=== PATIENT | male | born 1990 | race Caucasian/White ===

== ENCOUNTER 2018-08-16 11:54 | Emergency (ER) | payer BC ==
--- NOTE | 2018-08-16 13:46 | EDM.PDOC ---
<Quang Blas - Last Filed: 08/16/18 13:39> ED HPI GENERAL MEDICAL PROBLEM - General Chief Complaint: ENT Problem Stated Complaint: SORE THROAT Time Seen by Provider: 08/16/18 12:25 Source of Information: Reports: Patient History Limitations: Reports: No Limitations - History of Present Illness INITIAL COMMENTS - FREE TEXT/NARRATIVE: Rodrigo Pickard is a 28 year old male who presents to the ED with a Sore throat and increased fatigue for the last week. He states that he went to the walk-in clinic with his sore throat and gout like symptoms. He states that he was treated for the Gout but got nothing for his sore throat. He was swapped at the clinic but it was negative for strep. He has been havinga fever of 101 at home along with chills. He has been having increased pain in his throat with swallowing. He states that he has also been having increased fatigue where he has been sleeping about 12 hours a day. He also states that he has ear fullness in bilateral ears along with some increased sinus congestion. He has had about 5 episodes of vomiting but denies any blood or mucus in his emesis. He states that he actually started to have some diarrhea recently, but he thinks it's due to the Amoxicillin that he found left over and has been taking for the last 4 days. Along with the Amoxicillin, he has also tried Sudafed and Mucinex with no relief of his symptoms. He has not received the Influenza vaccine this year. He does not have a PCP. He states that his appetite has decreased and his fluid intake has been normal. Treatments FRAUD MANAGER: Reports: Other (see below) Other Treatments FRAUD MANAGER: Hydrocodone and Amoxicillin Throat Pain Score (Numeric/FACES): 8 - Related Data Allergies Allergy/AdvReac Type Severity Reaction Status Date / Time nickel Allergy Cannot Verified 08/16/18 12:08 Remember Home Meds: Home Meds oxyCODONE HCl/Acetaminophen [Percocet 5-325 mg Tablet] 1 - 2 each PO Q4H PRN # 16 tablet 04/16/18 [Rx] Indomethacin [Indocin] 50 mg PO BID 08/16/18 [History] Past Medical History - Past Health History Medical/Surgical History: Denies Medical/Surgical History HEENT History: Reports: None Cardiovascular History: Reports: None Respiratory History: Reports: None Gastrointestinal History: Reports: None Genitourinary History: Reports: None Musculoskeletal History: Reports: Arthritis, Gout Neurological History: Reports: Concussion, Headaches, Chronic, Migraines Psychiatric History: Reports: ADD Endocrine/Metabolic History: Reports: None Hematologic History: Reports: None Immunologic History: Reports: None Oncologic (Cancer) History: Reports: None Dermatologic History: Reports: Eczema - Infectious Disease History Infectious Disease History: Reports: None - Past Surgical History HEENT Surgical History: Reports: None Social & Family History - Family History HEENT: Reports: None Cardiac: Reports: None Respiratory: Reports: None GI: Reports: None OBGYN: Reports: None Musculoskeletal: Reports: None Neurological: Reports: CVA, Migraines Psychiatric: Reports: None Endocrine/Metabolic: Reports: None Hematologic: Reports: None Immunologic: Reports: None Oncologic: Reports: None - Tobacco Use Smoking Status *Q: Former Smoker Used Tobacco, but Quit: Yes Month/Year Tobacco Last Used: 10/18 - Caffeine Use Caffeine Use: Reports: Tea - Recreational Drug Use Recreational Drug Use: Yes Drug Use in Last 12 Months: No Recreational Drug Type: Reports: Marijuana/Hashish - Living Situation & Occupation Living situation: Reports: Single Occupation: Employed ED ROS ENT - Review of Systems Review Of Systems: ROS reveals no pertinent complaints other than HPI. ED EXAM, ENT - Physical Exam Exam Limited By: No Limitations General Appearance: Alert, WD/WN, No Apparent Distress Eye Exam: Bilateral Eye: Normal Inspection Ears: Normal External Exam, Normal Canal, Hearing Grossly Normal, TM Erythema, TM Fluid. No: TM Perforation Nose: No Blood, Clear Rhinorrhea Mouth/Throat: Normal Gums, Normal Lips, Normal Teeth, Pharyngeal Erythema, Throat Pain, Tonsillar Erythema. No: Peritonsillar Mass, Tonsillar Exudates Head: Atraumatic, Normocephalic Neck: Normal Inspection, Supple, Non-Tender, Full Range of Motion Respiratory/Chest: No Respiratory Distress, Lungs Clear, Normal Breath Sounds, No Accessory Muscle Use, Chest Non-Tender Cardiovascular: Normal Peripheral Pulses, Regular Rate, Rhythm, No Edema, No Gallop, No JVD, No Murmur, No Rub GI/Abdominal: Normal Bowel Sounds, Soft, No Organomegaly, No Distention, No Abnormal Bruit, No Mass, Tender (Mild tenderness in the RUQ). No: Splenomegaly Extremities: Normal Inspection, Normal Range of Motion, Non-Tender, No Pedal Edema, Normal Capillary Refill Neurological: Alert, Oriented, Normal Cognition, Normal Gait, No Motor/Sensory Deficits Psychiatric: Normal Affect, Normal Mood Skin: Warm, Dry, Intact, Normal Color, No Rash Course - Vital Signs Last Recorded V/S: Last Vital Signs Temp 97.4 F 08/16/18 12:13 Pulse 67 08/16/18 12:13 Resp 16 08/16/18 12:13 BP 145/97 H 08/16/18 12:13 Pulse Ox 100 08/16/18 12:13 - Orders/Labs/Meds Labs: Laboratory Tests 08/16/18 Range/Units 13:39 Monoscreen Negative (NEGATIVE) Departure - Departure Disposition: Home, Self-Care 01 Clinical Impression: Viral URI with cough - Discharge Information Instructions: Viral Respiratory Infection, [id number] Referrals: PCP,None [Primary Care Provider] - Forms: ED Department Discharge, ED Return to Work/School Form Additional Instructions: You have been evaluated in the ED today for your upper respiratory symptoms. Your monoscreen and your influenza screen were both negative at this ED visit. Your symptoms are likely due to a virus sinusitis in etiology. Recommend that you take [id number] medications such as Claritin, Claritin- D (this is the medication you will have to ask the pharmacist for as it has a decongestant and it) Mucinex-D (again this is a medication you will need to ask the pharmacist for). You may also increase your oral fluid intake as well. Please expect this illness to last around another 4-5 days. If your sensations of ear fullness, head congestion do not get better with conservative management in this timeframe recommend that you seek follow-up care at the walk-in clinic for a suspected bacterial sinusitis. With bacterial sinusitis you will notice a foul smelling/tasting discharge in the back of your mouth, and increased headache or facial pain. Please return to the ED if your symptoms change or worsen. <Marybeth Donnelly - Last Filed: 08/16/18 23:11> ED HPI GENERAL MEDICAL PROBLEM - History of Present Illness INITIAL COMMENTS - FREE TEXT/NARRATIVE: I have read and reviewed the student's HPI and examined the patient and agree with LILIANA Velasco-student. ED ROS ENT - Review of Systems Review Of Systems: See Below ED EXAM, ENT - Physical Exam Exam: See Below Course - Re-Assessments/Exams Free Text/Narrative Re-Assessment/Exam: 08/16/18 13:25 Patient presents to the ED for the evaluation of a sore throat and upper respiratory symptoms. Have obtained a Monospot and influenza screen for further evaluation. It is likely that his symptoms are due to a virus in nature , we will have him stop taking the amoxicillin that he obtained. 08/16/18 14:17 Monospot has returned and is negative, influenza screen is still pending at this time. 08/16/18 14:36 Influenza screen is negative for both a and B. Departure - Departure Time of Disposition: 14:36 Condition: Fair - Discharge Information *PRESCRIPTION DRUG MONITORING PROGRAM REVIEWED*: No *COPY OF PRESCRIPTION DRUG MONITORING REPORT IN PATIENT SANDER: No
== END 2018-08-16 14:49 | disposition home or self-care (01) ==
LOC: JD.ED 11:54
DX: J06.9 Acute upper respiratory infection, unspecified (principal); Z87.891 Personal history of nicotine dependence; Z91.09 Other allergy status, other than to drugs and biological substances
CPT/HCPCS: 36415; 86308; 87804; 99282; 99283